=== PATIENT | male | born 1985 | race Two or more races ===

== ENCOUNTER 2021-04-28 18:39 | Emergency (ER) | payer OTHER ==
[~2021-04-28] VITALS: Ht 167.6 cm; Wt 95.7 kg
[~2021-04-28 18:39] MED LIST: ALBUTEROL; ENALAPRIL MALEAT5 MG; IBU800 MG PO; INTESTINEX680 M2 PO; MEDROLPACK PO; PEPCID AC20 MG PO; PROAIR RESPICL90 MCG IH; PROTONIX20 MG PO
[2021-04-28] MEDS ORDERED: SINGULAIR 10MG10 MG PO (18:54)
[2021-04-28] MEDS ORDERED: ADVIL ALLERGY-1 EACH PO (18:54)
[2021-04-28] MEDS ORDERED: ZYRTEC10 MG PO ×3 (20:28→20:30)
[2021-04-28] MEDS ORDERED: ZITHROMAX500 MG PO (20:29)
== END 2021-04-28 20:54 | disposition home or self-care (01) ==
LOC: ER 18:39
DX: J03.90 Acute tonsillitis, unspecified (principal); J06.9 Acute upper respiratory infection, unspecified; J02.9 Acute pharyngitis, unspecified; Z03.818 Encounter for observation for suspected exposure to other biological agents ruled out

== ENCOUNTER → 2021-10-09 | Emergency (ER) | payer OTHER ==
[~2021-10-09] VITALS: Ht 167.6 cm; Wt 99.8 kg
[~2021-10-09] MED LIST changes: +ADVIL ALLERGY-1 EACH PO; +SINGULAIR 10MG10 MG PO; +ZITHROMAX500 MG PO; +ZYRTEC10 MG PO
== END | disposition left against medical advice (07) ==
LOC: ER 19:47
DX: Z53.21 Procedure and treatment not carried out due to patient leaving prior to being seen by health care provider (principal)